=== PATIENT | female | born 1930 | race African-American/Black ===

== ENCOUNTER 2016-10-04 19:14 | Emergency (ER) | payer BC ==
[~2016-10-04] VITALS: Ht 152.4 cm; Wt 65.5 kg
[~2016-10-04 19:14] MED LIST: ACET-2178 PO; AMLODIPINE PO; ASPI-1035 PO; LISINOPRIL PO; OXYB15TA9 PO; TRAV2.5D EACHEYE
[2016-10-04] MEDS ORDERED: KETOROLAC 60MG/2ML VIAL IM ONE (20:30)
[2016-10-04 22:01] VITALS: BP 128/67
== END 2016-10-04 22:40 | disposition home or self-care (01) ==
LOC: ER 20:39
DX: K59.00 Constipation, unspecified (principal); I10 Essential (primary) hypertension; H40.9 Unspecified glaucoma; K21.9 Gastro-esophageal reflux disease without esophagitis; Z79.82 Long term (current) use of aspirin; Z98.890 Other specified postprocedural states
CPT/HCPCS: 96372; 99283; J1885

== ENCOUNTER 2017-03-17 14:53 | Inpatient (IN) | payer BC ==
[~2017-03-17] VITALS: Ht 146.1 cm; Wt 61.2 kg
[~2017-03-17 14:53] MED LIST changes: -ASPI-1035 PO; +ASPI-1159 PO
[2017-03-17 16:05] LABS: BASOPHILS % 0.3 % (0.0-2.0); CHLORIDE 104 mEq/L (98-107); EOSINOPHILS % 1.9 % (0.0-5.0); HEMOGLOBIN. 12.7 g/dL (12.0-16.0); LYMPHOCYTES % 29.9 % (20.0-50.0); MEAN CORPUSCULAR HEMOGLOBIN 29.6 pg (28.0-32.0); MEAN CORPUSCULAR VOLUME 88.7 fL (81.0-99.0); MEAN PLATELET VOLUME 9.7 fl (7.4-10.4); MONOCYTES % 7.7 % (2.0-8.0); NEUTROPHILS % 60.2 % (40.0-76.0); PLATELET 108 x1000/uL (130-400); RED BLOOD CELL COUNT 4.29 mill/uL (4.2-5.4); RED CELL DISTRIBUTION WIDTH 13.2 % (11.6-14.6)
[2017-03-17 16:06] LABS: PARTIAL THROMBOPLASTIN TIME 22.2 sec (23.4-31.0); PROTHROMBIN TIME 10.7 sec (9.4-11.6)
[2017-03-17 16:12] LABS: CARBON DIOXIDE 30 mEq/L (21-32)
[2017-03-17 16:16] LABS: TROPONIN I 0.03 ng/mL (0.00-0.04)
[2017-03-17 21:35] VITALS: BP 129/78
[2017-03-17 21:40] VITALS: BP 129/78
[2017-03-17] MEDS ORDERED: TURM1POW MC (22:23)
[2017-03-17] MEDS ORDERED: TURM538C PO (22:23)
[2017-03-17] MEDS ORDERED: TRAM50TA3 PO (22:23)
[2017-03-17] MEDS ORDERED: OMEP20CA10 PO (22:23)
[2017-03-17] MEDS ORDERED: DILT120C2 PO (22:23)
[2017-03-17] MEDS ORDERED: AMLO5TAB88 PO (22:23)
[2017-03-17] MEDS ORDERED: TURM1POW2 MC (22:23)
[2017-03-17] MEDS ORDERED: TEMAZEPAM 15MG CAPSULE PO PRN (23:30)
[2017-03-17] MEDS ORDERED: TRAMADOL 50MG TABLET PO PRN (23:40)
[2017-03-18] VITALS: BP_SYST 140; BP_SYST 146; BP_SYST 150; BP_DIAS 69; BP_DIAS 70; BP_DIAS 78
[2017-03-18 00:27] LABS: CREATINE KINASE MB FRACTION 4.4 ng/mL (0.5-3.6); TROPONIN I 0.04 ng/mL (0.00-0.04)
[2017-03-18 04:00] VITALS: BP 128/66
[2017-03-18 08:00] VITALS: BP 151/71
[2017-03-18 08:57] LABS: CREATINE KINASE MB FRACTION 4.1 ng/mL (0.5-3.6); TROPONIN I 0.04 ng/mL (0.00-0.04)
[2017-03-18] MEDS ORDERED: DILTIAZEM HCL 30MG TABLET PO SCH (09:00)
[2017-03-18] MEDS ORDERED: OMEPRAZOLE 20MG CAPSULE EXTENDED RELEASE PO SCH (09:00)
[2017-03-18] MEDS ORDERED: ASPIRIN 81MG EC TABLET PO SCH (09:00)
[2017-03-18] MEDS ORDERED: AMLODIPINE 5MG TABLET PO SCH (09:00)
[2017-03-18 12:00] VITALS: BP_SYST 137; BP_SYST 145; BP_SYST 152; BP_DIAS 65; BP_DIAS 76; BP_DIAS 84
[2017-03-18 16:00] VITALS: BP 149/78
[2017-03-18 17:56] VITALS: BP 145/75
[2017-03-19] MEDS ORDERED: OMEPRAZOLE 20MG CAPSULE EXTENDED RELEASE PO SCH (06:45)
== END 2017-03-18 18:30 | disposition home or self-care (01) | DRG 74 ==
LOC: ER 15:11 → 5WST 20:00 → ENRESERV 20:49 → CANRESERV 20:49 → ENRESERVTM 20:56 → ENRESERVDT 20:56
PROVIDERS: ADMIT Internal Medicine; ATTEND Internal Medicine
DX: G90.8 Other disorders of autonomic nervous system (principal); H40.9 Unspecified glaucoma; I10 Essential (primary) hypertension; K21.9 Gastro-esophageal reflux disease without esophagitis; M48.00 Spinal stenosis, site unspecified; M51.86 Other intervertebral disc disorders, lumbar region; Z82.49 Family history of ischemic heart disease and other diseases of the circulatory system; Z83.3 Family history of diabetes mellitus; Z98.41 Cataract extraction status, right eye; Z79.899 Other long term (current) drug therapy; Z79.82 Long term (current) use of aspirin
CPT/HCPCS: 36415; 71010; 80053; 82550; 82553; 82962; 83690; 84484; 85025; 85610; 85730; 93005; 93880; 99285

== ENCOUNTER 2017-03-22 20:27 | Emergency (ER) | payer BC ==
[~2017-03-22] VITALS: Ht 157.5 cm; Wt 41.0 kg
[~2017-03-22 20:27] MED LIST changes: -ACET-2178 PO; +AMLO5TAB88 PO; -AMLODIPINE PO; +DILT120C2 PO; +OMEP20CA10 PO; +TRAM50TA3 PO; +TURM538C PO
[2017-03-22] MEDS ORDERED: MAGNESIUM/ALUMINUM HYDROXIDE/SIMETHICONE 30ML UDC PO ONE (21:00)
[2017-03-22] MEDS ORDERED: ASPIRIN 81MG TABLET PO ONE (21:00)
[2017-03-22] MEDS ORDERED: NITROGLYCERIN 0.4MG TABLET SL SL PRN (21:00)
[2017-03-22 21:39] LABS: BASOPHILS % 0.3 % (0.0-2.0); EOSINOPHILS % 4.1 % (0.0-5.0); HEMATOCRIT. 37.2 % (36.0-48.0); HEMOGLOBIN. 12.4 g/dL (12.0-16.0); LYMPHOCYTES % 23.4 % (20.0-50.0); MEAN CORPUSCULAR HEMOGLOBIN 29.6 pg (28.0-32.0); MEAN CORPUSCULAR VOLUME 88.5 fL (81.0-99.0); MEAN PLATELET VOLUME 10.1 fl (7.4-10.4); MONOCYTES % 8.4 % (2.0-8.0); NEUTROPHILS % 63.8 % (40.0-76.0); PLATELET 113 x1000/uL (130-400); RED CELL DISTRIBUTION WIDTH 13.1 % (11.6-14.6)
[2017-03-22 21:41] LABS: PROTHROMBIN TIME 10.7 sec (9.4-11.6)
[2017-03-22 21:46] LABS: CARBON DIOXIDE 28 mEq/L (21-32); CHLORIDE 103 mEq/L (98-107)
[2017-03-22 21:51] LABS: TROPONIN I < 0.02 ng/mL (0.00-0.04)
[2017-03-22 22:54] VITALS: BP 128/78
== END 2017-03-22 23:01 | disposition home or self-care (01) ==
LOC: ER 20:45
DX: R07.9 Chest pain, unspecified (principal); K21.9 Gastro-esophageal reflux disease without esophagitis; I10 Essential (primary) hypertension
CPT/HCPCS: 36415; 71010; 80053; 83880; 84484; 85025; 85610; 93005; 99285